=== PATIENT | female | born 1965 | race Caucasian/White ===

== ENCOUNTER → 2019-07-08 | Outpatient (CLI) | payer OTHER ==
--- NOTE | 2019-07-08 12:50 | RAD ---
Examination: US PELVIS W/TV History: Dysfunctional uterine bleeding Comparison/Correlation: None Findings: Transabdominal and transvaginal pelvic ultrasound exam were performed. Transvaginal technique was utilized to better assess the adnexal structures. Uterus measures 12.1 cm x 6.9 cm x 5.6 cm. Endometrial thickness of 1.7 cm present. Myometrium is unremarkable. Uterine cervix is thickened measuring up to 1.9 cm anteroposterior with heterogeneous echotexture. There is no flow evident on color Doppler imaging. Right ovary is not identified. Left ovary measures 5.1 cm x 4.3 cm x 2.8 cm. There are 2 left ovarian cysts. One of these measures up to 2.2 cm diameter and another measures up to 1.9 cm diameter. Normal flow involving the ovary is seen. Impression: Thickened endometrium with heterogeneous content in the endometrial cavity and uterine cervix. This may represent hemorrhage or clot. Underlying polyp or other lesion is not excluded on basis of this exam. Left adnexal follicles are present and likely physiologic. Electronically signed by: Marecllo Yost MD (07/08/2019 12:47 PM) [facility]
== END | disposition home or self-care (01) ==
LOC: US 10:00
PROVIDERS: ATTEND Obstetrics & Gynecology
DX: N83.202 Unspecified ovarian cyst, left side (principal); R93.89 Abnormal findings on diagnostic imaging of other specified body structures
CPT/HCPCS: 76830; 76856

== ENCOUNTER 2019-10-18 13:03 | Emergency (ER) | payer OTHER ==
[~2019-10-18] VITALS: Ht 177.8 cm; Wt 119.1 kg
--- NOTE | 2019-10-18 13:57 | PHYS DOC ---
Past History Past Medical History: Other Additional Past Medical Histor: gasper-menopausal Smoking: Non-smoker Alcohol Use: None Drug Use: None Adult General Chief Complaint Chief Complaint: HYPERTENSION HPI HPI Patient is a 53-year-old female presents with no complaints. She was sent here from the [facility] due to an elevated blood pressure. Patient has been undergoing adjustments in her mental health medicines as well as her hormone replacement therapy due to what pressure as well as hormone levels issues. Patient denies any chest pain, difficulty breathing, change in vision, headache, weakness, numbness, or any other complaints.[] Review of Systems Review of Systems Constitutional: Denies fever or chills [] Eyes: Denies change in visual acuity, redness, or eye pain [] HENT: Denies nasal congestion or sore throat [] Respiratory: Denies cough or shortness of breath [] Cardiovascular: No chest pain or palpitations[] GI: Denies abdominal pain, nausea, vomiting, bloody stools or diarrhea [] : Denies dysuria or hematuria [] Musculoskeletal: Denies back pain or joint pain [] Integument: Denies rash or skin lesions [] Neurologic: Denies headache, focal weakness or sensory changes [] Endocrine: Denies polyuria or polydipsia [] All other systems were reviewed and found to be within normal limits, except as documented in this note. Physical Exam Physical Exam Constitutional: Well developed, well nourished, no acute distress, non-toxic appearance. [] HENT: Normocephalic, atraumatic, bilateral external ears normal, oropharynx moist, no oral exudates, nose normal. [] Eyes: PERRLA, EOMI, conjunctiva normal, no discharge. [] Neck: Normal range of motion, no tenderness, supple, no stridor. [] Cardiovascular:Heart rate regular rhythm, no murmur [] Lungs & Thorax: Bilateral breath sounds clear to auscultation [] Abdomen: Bowel sounds normal, soft, no tenderness, no masses, no pulsatile masses. [] Skin: Warm, dry, no erythema, no rash. [] Back: No tenderness, no CVA tenderness. [] Extremities: No tenderness, no cyanosis, no clubbing, ROM intact, no edema. [] Neurologic: Alert and oriented X 3, normal motor function, normal sensory function, no focal deficits noted. [] Psychologic: Affect normal, judgement normal, mood normal. [] EKG EKG EKG shows a sinus rhythm at 68 bpm, left axis, QTC of 415 ms, no ST elevations. Interpreted by me at 1321.[] Radiology/Procedures Radiology/Procedures PROCEDURE: CHEST PA & LATERAL CHEST PA LATERAL History: Hypertension Comparison: None. Findings: 2 views of the chest are submitted. There is no infiltrate, pneumothorax, or effusion. Pericardial cardiac silhouette is within normal limits in size. There is some atherosclerotic calcification near the aortic arch. Impression: 1. There is no radiographic evidence of acute cardiopulmonary disease.[] Course & Med Decision Making Course & Med Decision Making Pertinent Labs and Imaging studies reviewed. (See chart for details) Emergency department course: Patient arrived, was placed in bed, and tolerated exam well. Her blood pressure improved to the 160s systolic while she was here without any medical intervention. Findings and plan were discussed with the patient and family who voiced understanding. All questions were answered. She was discharged in improved condition. Medical decision making: Patient who most likely has hypertension. There is no evidence of hypertension urgency or emergency. No evidence of end organ dysfunction at this time. This may be a result of changes in her medications. We will let her primary care physician be the one to manage blood pressure. We are giving her information regarding the dietary approach to stop hypertension, as well as restricting salt.[] Dragon Disclaimer Dragon Disclaimer This electronic medical record was generated, in whole or in part, using a voice recognition dictation system. Departure Departure: Impression: Primary Impression: Hypertension Disposition: 01 HOME, SELF-CARE Condition: IMPROVED Referrals: MEGGAN MONTOYA (PCP) Follow-up for blood pressure management Patient Instructions: DASH Diet, Hypertension Additional Instructions: Avoid salt in your diet. Follow the dietary approach to stop hypertension guidelines. Follow-up with your regular doctor in 2 days. Return to the ER if wo rsening chest pain, difficulty breathing, headache, change in vision, or any other concerns. DONALDO CARRIZALES DO Oct 18, 2019 13:57
--- NOTE | 2019-10-18 14:09 | RAD ---
CHEST PA LATERAL History: Hypertension Comparison: None. Findings: 2 views of the chest are submitted. There is no infiltrate, pneumothorax, or effusion. Pericardial cardiac silhouette is within normal limits in size. There is some atherosclerotic calcification near the aortic arch. Impression: 1. There is no radiographic evidence of acute cardiopulmonary disease. Electronically signed by: Chirag Greene MD (10/18/2019 2:06 PM) [id number]
[2019-10-18 14:10] LABS: BASO % 1 % (0-3); EOS % 0 % (0-3); HEMATOCRIT 45.8 % (36.0-47.0); HEMOGLOBIN 15.4 g/dL (12.0-15.5); LYMPH # 1.8 x10^3/uL (1.0-4.8); LYMPH % 32 % (24-48); MEAN CORPUSCULAR HEMOGLOBIN 33 pg (25-35); MEAN CORPUSCULAR HGB CONC 34 g/dL (31-37); MEAN CORPUSCULAR VOLUME 99 fL (79-100); MONO # 0.5 x10^3/uL (0.0-1.1); MONO % 9 % (0-9); NEUT # 3.1 x10^3uL (1.8-7.7); NEUT % 58 % (31-73); PLATELET COUNT 204 x10^3/uL (140-400); RED BLOOD COUNT 4.65 x10^6/uL (3.50-5.40); RED CELL DISTRIBUTION WIDTH 12.4 % (11.5-14.5); WHITE BLOOD COUNT 5.4 x10^3/uL (4.0-11.0)
[2019-10-18 14:17] LABS: CALCIUM 8.6 mg/dL (8.5-10.1); CREATININE 0.7 mg/dL (0.6-1.0); GFR 87.9; MAGNESIUM 1.8 mg/dL (1.8-2.4); POTASSIUM 3.7 mmol/L (3.5-5.1)
[2019-10-18 15:15] VITALS: BP 172/99
[2019-10-18 15:19] LABS: BILIRUBIN,URINE NEG (NEG); CLARITY,URINE CLEAR; COLOR,URINE YELLOW; GLUCOSE,URINE NEG (NEG); NITRITE,URINE NEG (NEG); UROBILINOGEN,URINE 0.2 mg/dL (0.2 mg/dL)
[2019-10-18 15:20] LABS: BACTERIA,URINE 0 /HPF (0-FEW); SQUAMOUS EPITHELIAL CELL,UR FEW /LPF
[2019-10-18 15:27] LABS: U PREG PATIENT NEGATIVE (NEG)
--- NOTE | 2019-10-19 21:50 | EKG ---
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
== END 2019-10-18 15:45 | disposition home or self-care (01) ==
LOC: ER 13:03
DX: I10 Essential (primary) hypertension (principal); Z79.890 Hormone replacement therapy
CPT/HCPCS: 36415; 71046; 80048; 81001; 81025; 83735; 85025; 93005; 99285

== ENCOUNTER → 2021-10-18 | Outpatient (CLI) | payer OTHER ==
--- NOTE | 2021-10-18 13:45 | RAD ---
EXAM: Bilateral knees, standing view; right knee, 2 views. HISTORY: Pain. COMPARISON: None. FINDINGS: A standing view both knees and lateral and sunrise views of the right knee are obtained. Th ere is moderate to severe lateral and moderate medial compartment joint space narrowing of the right knee. There is mild to moderate medial and lateral compartment and mild patellofemoral compartment sp urring of the right knee. There is mild right genu valgus. There is a small right knee effusion. Ther e is a suspected small joint loose bodies inferior to the right patella. IMPRESSION: 1. Moderate to severe lateral compartment predominant osteoarthritis of the right knee with small martha nt effusion, suspected joint loose body and mild genu valgus. 2. No acute osseous finding. Electronically signed by: Tanya Washington MD (10/18/2021 1:43 PM) [id number]
== END ==
LOC: RAD 12:46
PROVIDERS: ATTEND Physician Assistant
DX: M17.11 Unilateral primary osteoarthritis, right knee (principal); M25.461 Effusion, right knee; M21.061 Valgus deformity, not elsewhere classified, right knee
CPT/HCPCS: 73560; 73565

== ENCOUNTER → 2021-11-09 | Outpatient (CLI) | payer OTHER ==
--- NOTE | 2021-11-09 10:32 | RAD ---
Exam Date: 11/09/2021 9:[address] LOWER RIGHT EXTREMITY WITHOUT CONTRAST Indication: Reason: RIGHT KNEE PAIN / Spl. Instructions: / History: . Technique: CT scan of the right knee was performed without intravenous contrast. One or more of the following dose reduction techniques were utilized: *Automated exposure control (AEC) *Adjustment of mA and/or kV according to patient size *Use of iterative reconstruction technique *CT scan done according to ALARA, or ALARA/IMAGE GENTLY COMPARISON: Radiographs from October 18, 2021 FINDINGS: There is moderate to severe lateral compartment joint space narrowing. Alignment is maintained. Sma ll to moderate tricompartment osteophytes are noted. No acute fracture or dislocation is seen. There is a small suprapatellar joint effusion. Visualized muscles demonstrate a normal CT appearance . Other visualized soft tissue structures demonstrate normal CT appearances. IMPRESSION: Moderate to severe degenerative changes, predominantly in the lateral compartment. No acute fracture . Electronically signed by: Willy Zelaya MD (11/09/2021 10:29 AM) [facility]
== END ==
LOC: CT 09:50
PROVIDERS: ATTEND Physician Assistant
DX: M17.11 Unilateral primary osteoarthritis, right knee (principal); M25.461 Effusion, right knee; M25.761 Osteophyte, right knee
CPT/HCPCS: 73700